=== PATIENT | male | born 1950 | race Caucasian/White ===

== ENCOUNTER 2018-10-09 20:23 | Emergency (ER) | payer BC, MEDICARE, OTHER ==
[~2018-10-09] VITALS: Ht 177.8 cm; Wt 115.9 kg
[2018-10-10 00:36] VITALS: BP 158/82
--- NOTE | 2018-10-10 07:51 | REP ---
Right tibia-fibula four view : There is no fracture or dislocation. Mineralization and joint spaces are normal. There are no calcifications or foreign bodies. Impression: Negative Right tibia-fibula . Electronically Signed by Lukas Jo MD 10/10/2018 07:43 A
== END 2018-10-10 00:42 | disposition home or self-care (01) ==
LOC: M ED 20:23
DX: S80.11XA Contusion of right lower leg, initial encounter (principal); W22.8XXA Striking against or struck by other objects, initial encounter; Y92.018 Other place in single-family (private) house as the place of occurrence of the external cause

== ENCOUNTER 2018-11-27 14:50 | Emergency (ER) | payer MEDICARE ==
[~2018-11-27] VITALS: Ht 177.8 cm; Wt 121.6 kg
[2018-11-27 16:48] VITALS: BP 159/93
== END 2018-11-27 16:57 | disposition home or self-care (01) ==
LOC: M ED 14:50
DX: R04.0 Epistaxis (principal)

== ENCOUNTER 2018-11-28 14:05 | Emergency (ER) | payer MEDICARE ==
[~2018-11-28] VITALS: Ht 177.8 cm; Wt 118.2 kg
[2018-11-28] MEDS ORDERED: NIFEdipine 10 MG CAP PO ONE (16:30)
[2018-11-28 16:36] VITALS: BP 178/90
[2018-11-28 18:50] VITALS: BP 120/68
[2018-11-29] MEDS ORDERED: AUGM875T28 PO (23:32)
== END 2018-11-28 18:51 | disposition home or self-care (01) ==
LOC: M ED 14:05
DX: R04.0 Epistaxis (principal); I10 Essential (primary) hypertension; Z79.899 Other long term (current) drug therapy

== ENCOUNTER 2018-11-29 21:16 | Emergency (ER) | payer MEDICARE ==
[~2018-11-29] VITALS: Ht 177.8 cm; Wt 118.2 kg
[2018-11-29 22:11] LABS: HEMATOCRIT 40.8 % (42.0-52.0); HEMOGLOBIN 13.9 g/dl (13.5-17.5); MEAN CORPUSCULAR HGB CONC 34.1 g/dl (32.0-36.5); MEAN CORPUSCULAR VOLUME 88.1 fl (80.0-96.0); PLATELET COUNT, AUTOMATED 192 10^3/uL (150-450); RED BLOOD COUNT 4.63 10^6/uL (4.30-6.10); WHITE BLOOD COUNT 11.9 10^3/uL (4.0-10.0)
[2018-11-29] MEDS ORDERED: AUGMENTIN 875 MG TAB PO ONE (22:15)
[2018-11-29 22:33] LABS: INR 1.01
[2018-11-29 22:35] LABS: ALBUMIN 3.8 GM/DL (3.2-5.2); ALT/SGPT 43 U/L (12-78); BILIRUBIN,DIRECT 0.3 MG/DL (0.0-0.2); BILIRUBIN,TOTAL 1.6 MG/DL (0.2-1.0); BLOOD UREA NITROGEN 31 MG/DL (7-18); CALCIUM LEVEL 8.7 MG/DL (8.8-10.2); CARBON DIOXIDE LEVEL 27 MEQ/L (21-32); CHLORIDE LEVEL 107 MEQ/L (98-107); CREATININE FOR GFR 1.15 MG/DL (0.70-1.30); GLOMERULAR FILTRATION RATE > 60.0 (>49); GLUCOSE, FASTING 107 MG/DL (70-100); POTASSIUM SERUM 4.2 MEQ/L (3.5-5.1); SODIUM LEVEL 140 MEQ/L (136-145); TOTAL PROTEIN 6.6 GM/DL (6.4-8.2)
[2018-11-29] MEDS ORDERED: MORPHINE 4 MG/ML 1ML VIAL/SYRINGE (J2270) IV ONE (23:00)
[2018-11-29] MEDS ORDERED: SILVER NITRATE APPLICATOR TOP ONE (23:00)
[2018-11-29] MEDS ORDERED: ONDANSETRON 4MG/2ML VIAL (J2405) IV ONE (23:00)
[2018-11-29] MEDS ORDERED: LIDOCAINE W/EPINEPHRINE 1% 20ML VIAL SC ONE (23:30)
[2018-11-29] MEDS ORDERED: AUGM875T28 PO (23:32)
[2018-11-29] MEDS ORDERED: LABETALOL HCL 100 MG/20 ML VIAL IV STA (23:34)
[2018-11-30 00:29] VITALS: BP 127/65
[2018-11-30] MEDS ORDERED: VITMTA PO (04:42)
[2018-11-30] MEDS ORDERED: B COTAB3 PO (04:42)
[2018-11-30] MEDS ORDERED: IBUP-1764 PO (04:42)
[2018-11-30] MEDS ORDERED: VITA100T12 PO (04:42)
== END 2018-11-30 00:48 | disposition home or self-care (01) ==
LOC: M ED 21:16
DX: R04.0 Epistaxis (principal); I10 Essential (primary) hypertension; I25.10 Atherosclerotic heart disease of native coronary artery without angina pectoris
CPT/HCPCS: 80048; 80076; 85027; 85610; 96374; 96375; 99284; J2270; J2405

== ENCOUNTER 2018-11-30 03:39 | Observation (INO) | payer MEDICARE ==
[~2018-11-30] VITALS: Ht 177.8 cm; Wt 118.4 kg
[~2018-11-30 03:39] MED LIST: AUGM875T28 PO
[2018-11-30 04:02] LABS: BASO # 0.1 10^3/uL (0.0-0.2); BASO % 0.6 % (0.0-1.0); EOS # 0.1 10^3/uL (0.0-0.5); EOS % 0.7 % (0.0-3.0); HEMATOCRIT 38.8 % (42.0-52.0); HEMOGLOBIN 12.8 g/dl (13.5-17.5); LYMPH # 1.4 10^3/uL (1.5-5.0); MEAN CORPUSCULAR HEMOGLOBIN 29.9 pg (27.0-33.0); MEAN CORPUSCULAR VOLUME 90.7 fl (80.0-96.0); MONO # 1.3 10^3/uL (0.0-0.8); MONO % 10.3 % (0.0-5.0); NEUTROPHILS # 9.4 10^3/uL (1.5-8.5); PLATELET COUNT, AUTOMATED 185 10^3/uL (150-450); RED BLOOD COUNT 4.28 10^6/uL (4.30-6.10); WHITE BLOOD COUNT 12.2 10^3/uL (4.0-10.0)
[2018-11-30] MEDS ORDERED: B COTAB3 PO (04:42)
[2018-11-30] MEDS ORDERED: VITA100T12 PO (04:42)
[2018-11-30] MEDS ORDERED: IBUP-1764 PO (04:42)
[2018-11-30] MEDS ORDERED: VITMTA PO (04:42)
[2018-11-30] MEDS ORDERED: AUGMENTIN 875 MG TAB PO ONE (10:00)
--- NOTE | 2018-11-30 12:20 | HPEPDOC ---
[facility] Medical History & Physical Date of Admission Nov 30, 2018 Date of Service: Nov 30, 2018 Attending Physician: BLANCA LEONARDO MD History and Physical CHIEF COMPLAINT: Nose bleed HISTORY OF PRESENT ILLNESS: 68-year-old male with no significant past medical history presents with recurrent epistaxis. He reports injury to his lower back 6 weeks ago and has been taking 10-12 tabs of ibuprofen daily since then, last use was for 4 days ago when he started having epistaxis. He presented to the ED, bleeding had stopped and he was sent home; he returned following day with epistaxis, Rhino Rocket was placed and he was sent home, reports slippage of Rhino Rocket with subsequent epistaxis and he returned for the third time to the emergency room. He was evaluated by ENT yesterday and gel was placed with adequate cauterization and he was discharged again from the ED, he reports bleeding restarted before he even made it home. Upon returning last night and other Rhino Rocket was placed in the right nostril, no bleeding has recurred since 4 AM; he was reevaluated by ENT who advised admission for monitoring and managing hypertension. There is no plan for emergent surgery at this time. Patient has no other complaints at this time, denies shortness of breath, chest pain, nausea, vomiting, abdominal pain, diarrhea or constipation. Patient does report dark stool for the past day or 2. 10 point review of system was negative except for above PAST MEDICAL HISTORY: 1. None. PAST SURGICAL HISTORY: 1. Appendectomy. SOCIAL HISTORY: Ex smoker, quit 30+ years ago. Rare alcohol use FAMILY HISTORY: Denies family history of malignancy or heart disease ALLERGIES: Please see below. HOME MEDICATIONS: Multivitamins PHYSICAL EXAMINATION: VITAL SIGNS: Please see below. GENERAL: No distress HEENT: Normocephalic, Rhino Rocket in right nostril, minimal oozing, moist mucous membranes NECK: Supple CARDIOVASCULAR EXAMINATION: S1, S2, no murmurs RESPIRATORY EXAMINATION: Clear to auscultation, no wheezing ABDOMINAL EXAMINATION: Soft, nontender, nondistended, positive bowel sounds EXTREMITIES: Range of motion intact SKIN: No rash NEUROLOGICAL EXAMINATION: Alert and oriented 3, no focal deficits PSYCHIATRIC EXAMINATION: Calm and cooperative LABORATORY DATA: See below. MICROBIOLOGY: Please see below. ASSESSMENT: 78-year-old male with no significant past medical history and recent NSAID use, presents with recurrent epistaxis. . PLAN: 1. Epistaxis. Status post chemical cauterization, Rhino Rocket in right nostril 2. No active bleeding at this time, H&H slightly downtrending, no need for transfusion at this time, will monitor. ENT following Elevated blood pressure, reports no history of hypertension, will control with oral medication. Norvasc ordered. Patient will be admitted for observation. DVT prophylaxis: TEDs. GI prophylaxis: Not needed at this time Vital Signs Vital Signs Date Time Temp Pulse Resp B/P (MAP) Pulse Ox O2 Delivery O2 Flow Rate FiO2 11/30/18 06:57 77 15 164/78 (106) 98 Room Air 11/30/18 03:47 97.8 Laboratory Data Labs 24H Laboratory Tests 2 11/30/18 03:57: Immature Granulocyte % (Auto) 0.4, White Blood Count 12.2H, Red Blood Count 4.28L, Hemoglobin 12.8L, Hematocrit 38.8L, Mean Corpuscular Volume 90.7, Mean Corpuscular Hemoglobin 29.9, Mean Corpuscular Hemoglobin Concent 33.0, Red Cell Distribution Width 12.9, Platelet Count 185, Neutrophils (%) (Auto) 77.0H, Lymphocytes (%) (Auto) 11.0L, Monocytes (%) (Auto) 10.3H, Eosinophils (%) (Auto) 0.7, Basophils (%) (Auto) 0.6, Neutrophils # (Auto) 9.4H, Lymphocytes # (Auto) 1.4L, Monocytes # (Auto) 1.3H, Eosinophils # (Auto) 0.1, Basophils # (Auto) 0.1, Nucleated Red Blood Cells % (auto) 0.0 CBC/BMP Laboratory Tests 11/30/18 03:57 Red Blood Count 4.28 L, Mean Corpuscular Volume 90.7, Mean Corpuscular Hemoglobin 29.9, Mean Corpuscular Hemoglobin Concent 33.0, Red Cell Distribution Width 12.9, Neutrophils (%) (Auto) 77.0 H, Lymphocytes (%) (Auto) 11.0 L, Monocytes (%) (Auto) 10.3 H, Eosinophils (%) (Auto) 0.7, Basophils (%) (Auto) 0.6, Neutrophils # (Auto) 9.4 H, Lymphocytes # (Auto) 1.4 L, Monocytes # (Auto) 1.3 H, Eosinophils # (Auto) 0.1, Basophils # (Auto) 0.1 Home Medications Scheduled Cyanocobalamin (Vitamin B-12) (Vitamin B-12) 100 Mcg Tablet, 100 MCG PO DAILY Multivitamins (Thera M Plus Tablet) 1 Each Tablet, 1 TAB PO DAILY Vitamin B Complex (Vitamin B Complex) 1 Each Tablet, 1 TAB PO DAILY Scheduled PRN Ibuprofen (Ibuprofen) 200 Mg Tablet, 600 MG PO TID PRN for PAIN Allergies Coded Allergies: No Known Allergies (Unverified , 10/09/18) A-FIB/CHADSVASC A-FIB History Current/History of A-Fib/PAF?: No BLANCA LEONARDO MD Nov 30, 2018 12:20
[2018-11-30] MEDS ORDERED: amLODIPine 5 MG TAB PO ONE (13:00)
[2018-11-30 13:05] VITALS: BP 188/91
[2018-11-30 14:00] VITALS: BP 163/96
[2018-11-30 22:00] VITALS: BP 121/70
--- NOTE | 2018-12-01 05:46 | HPE ---
DATE OF ADMISSION: 11/30/2018 REFERRING PHYSICIAN: Emergency department at [facility]. CHIEF COMPLAINT: Right epistaxis. 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 The patient had been seen in the emergency department (ED) last evening by myself and I had placed packing into the right nasal cavity. Upon returning to the emergency department the patient received the placement of rhino rocket. This achieved control of the epistaxis. At this time the patient is not actively bleeding; however, his blood pressure remains in the hypertensive range of systolic pressure of 140-150. Other significant recent medical history included lower back pain requiring the use of 10-12 tablets of ibuprofen on a daily basis until he would start having right epistaxis three days ago. PAST MEDICAL HISTORY: Recurrent right epistaxis. PAST SURGICAL HISTORY: Appendectomy. ALLERGIES: None. MEDICATIONS: - Augmentin as prescribed for prophylaxis against sinusitis. SOCIAL HISTORY: Ex-smoker, occasional drinker. REVIEW OF SYSTEMS: Per history of present illness (HPI) otherwise noncontributory. EXAMINATION: General: The patient appears in no acute distress. HEENT: Right nares free of active bleeding. Posterior pharyngeal wall shows no evidence of fresh blood or blood clots. Oral cavity is moist. Neck: Trachea is midline. No palpable cervical lymphadenopathy. LABORATORY DATA: Hemoglobin 12.9. IMPRESSION: 68-year-old man with recurrent right epistaxis. PLAN: I have discussed with the patient of current management and plan including careful observation while being admitted to the hospital under the care of the hospitalist who will be able to control the blood pressure. If the epistaxis recurs I will bring the patient to the operating room for examination under general anesthesia with possible ligation of sphenopalatine artery. The patient is agreeable with the plan.
[2018-12-01 06:00] VITALS: BP 150/88
[2018-12-01 06:13] LABS: HEMATOCRIT 39.3 % (42.0-52.0); MEAN CORPUSCULAR HEMOGLOBIN 29.4 pg (27.0-33.0); MEAN CORPUSCULAR HGB CONC 33.1 g/dl (32.0-36.5); MEAN CORPUSCULAR VOLUME 88.9 fl (80.0-96.0); PLATELET COUNT, AUTOMATED 177 10^3/uL (150-450); RED BLOOD COUNT 4.42 10^6/uL (4.30-6.10); WHITE BLOOD COUNT 9.9 10^3/uL (4.0-10.0)
[2018-12-01 06:27] LABS: ALBUMIN 3.7 GM/DL (3.2-5.2); ALT/SGPT 37 U/L (12-78); BILIRUBIN,TOTAL 1.5 MG/DL (0.2-1.0); BLOOD UREA NITROGEN 19 MG/DL (7-18); CALCIUM LEVEL 8.8 MG/DL (8.8-10.2); CARBON DIOXIDE LEVEL 29 MEQ/L (21-32); CHLORIDE LEVEL 108 MEQ/L (98-107); CREATININE FOR GFR 1.05 MG/DL (0.70-1.30); GLOMERULAR FILTRATION RATE > 60.0 (>49); GLUCOSE, FASTING 110 MG/DL (70-100); MAGNESIUM LEVEL 2.1 MG/DL (1.8-2.4); POTASSIUM SERUM 3.9 MEQ/L (3.5-5.1); SODIUM LEVEL 142 MEQ/L (136-145); TOTAL PROTEIN 7.1 GM/DL (6.4-8.2)
[2018-12-01] MEDS ORDERED: amLODIPine 5 MG TAB PO SCH (09:00)
[2018-12-01 14:00] VITALS: BP 150/80
--- NOTE | 2018-12-01 15:24 | IPNPDOC ---
Date Seen The patient was seen on 12/01/18. Progress Note HISTORY OF PRESENT ILLNESS: 68-year-old male with no significant past medical history presents with recurrent epistaxis. He reports injury to his lower back 6 weeks ago and has been taking 10-12 tabs of ibuprofen daily since then, last use was for 4 days ago when he started having epistaxis. He presented to the ED, bleeding had stopped and he was sent home; he returned following day with epis taxis, Rhino Rocket was placed and he was sent home, reports slippage of Rhino Rocket with subsequent epistaxis and he returned for the third time to the emergency room. He was evaluated by ENT yesterday and gel was placed with adequate cauterization and he was discharged again from the ED, he reports bleeding restarted before he even made it home. Upon returning last night and other Rhino Rocket was placed in the right nostril, no bleeding has recurred since 4 AM; he was reevaluated by ENT who advised admission for monitoring and managing hypertension. There is no plan for emergent surgery at this time. Patient has no other complaints at this time, denies shortness of breath, chest pain, nausea, vomiting, abdominal pain, diarrhea or constipation. Patient does report dark stool for the past day or 2. 12/01/2018 No further episodes of epistaxis, patient is comfortable, tolerating diet, a mbulating, without any complaints at this time, BP elevated in the morning. She denies any sugars breath, chest pain, abdominal pain, nausea, vomiting or diarrhea at this time. 10 point review of system was negative except for above PHYSICAL EXAMINATION: VITAL SIGNS: Please see below. GENERAL: No distress HEENT: Normocephalic, Rhino Rocket in right nostril, moist mucous membranes NECK: Supple CARDIOVASCULAR EXAMINATION: S1, S2, no murmurs RESPIRATORY EXAMINATION: Clear to auscultation, no wheezing ABDOMINAL EXAMINATION: Soft, nontender, nondistended, positive bowel sounds EXTREMITIES: Range of motion intact SKIN: No rash NEUROLOGICAL EXAMINATION: Alert and oriented 3, no focal deficits PSYCHIATRIC EXAMINATION: Calm and cooperative LABORATORY DATA: See below. MICROBIOLOGY: Please see below. ASSESSMENT: 78-year-old male with no significant past medical history and recent NSAID use, presents with recurrent epistaxis. . PLAN: 1. Epistaxis. Status post chemical cauterization, Rhino Rocket in right nostril 2. No further bleeding, H&H stable. ENT following 2. Hypertension. Continue Norvasc 5 mg daily. DVT prophylaxis: TEDs. GI prophylaxis: Not needed at this time VS, I&O, 24H, Fishbone Vital Signs/I&O Vital Signs Date Time Temp Pulse Resp B/P (MAP) Pulse Ox O2 Delivery O2 Flow Rate FiO2 12/01/18 14:00 96.7 85 19 150/80 (103) 96 11/30/18 06:57 Room Air I&O- Last 24 Hours up to 6 AM 12/01/18 06:00 Intake Total 1300 ml Output Total 0 ml Balance 1300 ml Laboratory Data 24H LABS Laboratory Tests 2 12/01/18 05:48: Nucleated Red Blood Cells % (auto) 0.0, Anion Gap 5L, Glomerular Filtration Rate > 60.0, Blood Urea Nitrogen 19H, Creatinine 1.05, Sodium Level 142, Potassium Level 3.9, Chloride Level 108H, Carbon Dioxide Level 29, Calcium Level 8.8, Aspartate Amino Transf (AST/SGOT) 23, Alanine Aminotransferase (ALT/SGPT) 37, Alkaline Phosphatase 52, Total Bilirubin 1.5H, Total Protein 7.1, Albumin 3.7, Magnesium Level 2.1, Albumin/Globulin Ratio 1.09 CBC/BMP Laboratory Tests 12/01/18 05:48 Red Blood Count 4.42, Mean Corpuscular Volume 88.9, Mean Corpuscular Hemoglobin 29.4, Mean Corpuscular Hemoglobin Concent 33.1, Red Cell Distribution Width 12.6, Calcium Level 8.8, Aspartate Amino Transf (AST/SGOT) 23, Alanine Aminotransferase (ALT/SGPT) 37, Alkaline Phosphatase 52, Total Bilirubin 1.5 H, Total Protein 7.1, Albumin 3.7 BLANCA LEONARDO MD Dec 01, 2018 15:24
[2018-12-01] MEDS ORDERED: amLODIPine 5 MG TAB PO ONE (16:00)
[2018-12-01 22:00] VITALS: BP 144/72
[2018-12-02 06:00] VITALS: BP 124/79
[2018-12-02] MEDS ORDERED: amLODIPine 10 MG TAB PO SCH (09:00)
[2018-12-02 09:04] VITALS: BP 129/78
--- NOTE | 2018-12-02 11:26 | ER ---
DATE OF CONSULTATION: 11/29/2018 REQUESTED BY: Emergency department. CHIEF COMPLAINT: Right epistaxis. HISTORY OF PRESENT ILLNESS: This is a 68-year-old man, presented to the emergency department at [facility] for the past three days due to recurrent right epistaxis. He has had a Rhino Rocket pack in place in the right nasal cavity; however, he still continued to have issue with bleeding, including sensation of blood dripping down the backside of the oral cavity. He has been taking 10-12 tablets of ibuprofen daily since a lower back injury that occurred about six weeks ago. Patient also known to have issue with hypertension. He has no shortness of breath, chest pain, nausea, vomiting, diarrhea, constipation or intractable headache. PAST MEDICAL HISTORY: None. PAST SURGICAL HISTORY: Appendectomy. SOCIAL HISTORY: Ex-smoker, quit 30 years ago. Occasional alcohol user. FAMILY HISTORY: Noncontributory. ALLERGIES: None. HOME MEDICATIONS: - multivitamins - ibuprofen as needed for pain PHYSICAL EXAMINATION: Patient appears in mild distress. Fresh blood noted from the right nares and on the posterior pharyngeal wall at the level of the oropharynx. Normocephalic. Facial motions symmetrical. Normal nasal anatomy. Oral cavity moist. No palpable cervical lymphadenopathy. Trachea midline. No thyromegaly. LABORATORY DATA: Hemoglobin 14. PROCEDURE #1: FLEXIBLE NASAL ENDOSCOPY. INDICATION: Right epistaxis. Patient was in the upright position on the stretcher in the emergency department. Flexible nasal endoscopy was performed in the right nares. Clots were noted throughout the right nasal cavity. Short nasal septal spur in the right inferior midportion of the nasal septum. Anterior deflection of the nasal septum through the left side. PROCEDURE #2: RETRONASAL ENDOSCOPIC DEBRIDEMENT OF THE RIGHT NASAL CAVITY. INDICATION: Right epistaxis. In the upper position on the stretcher in the emergency department, a 30 degree rigid nasal endoscope was introduced into the right nares. Under direct visualization, the clots were successfully suctioned clear from the right nasal cavity. No active bleeder was noted. Diffuse oozing was noted throughout the right nasal cavity. PROCEDURE #3: CONTROL OF RIGHT EPISTAXIS. INDICATION: Right epistaxis. Patient was in the upright position on the stretcher in the emergency department. The right nasal cavity was visualized using 30 degree rigid nasal endoscope. The SINU-FOAM was then injected into the posterior nasal cavity under direct visualization to ensure complete packing. The midportion of the nasal cavity, including osteomeatal complex area was also packed. Spheno fossa area was also packed with the SINU-FOAM. Procedure was well-tolerated without complications. IMPRESSION: A 68-year-old man with recurrent right epistaxis. PLAN: The right nasal cavity was endoscopically debrided and examined using flexible and rigid nasal endoscope. Control of the right epistaxis was achieved using the SINU-FOAM packing. At this time, patient is advised to maintain good control of his blood pressure. He will be contacting his own primary care doctor for management. He will be prescribed Augmentin by the emergency department (ED). He is also advised to not use the ibuprofen anymore at this time due to issue with bleeding, as well as possible risk of injury to the kidneys. I will see the patient again in one week followup in my office.
[2018-12-02] MEDS ORDERED: AUGM875T28 PO (13:43)
[2018-12-02] MEDS ORDERED: AMLO10TA5 PO (13:43)
--- NOTE | 2018-12-07 10:04 | DS.PDOC ---
Discharge Summary General Date of Admission Nov 30, 2018 at 03:40 Date of Discharge 12/02/2018 Attending Physician: BLANCA LEONARDO MD Discharge Summary PROCEDURES PERFORMED DURING STAY: None. ADMITTING DIAGNOSES: 1. Recurrent epistaxis. DISCHARGE DIAGNOSES: 1. Recurrent epistaxis. COMPLICATIONS/CHIEF COMPLAINT: Epistaxis, Recurrent, Htn (Hypertension). HISTORY OF PRESENT ILLNESS: 68-year-old male with past medical history of hypertension, was admitted for recurrent epistaxis, requiring Rhino rocket in the right nostril and ENT evaluation. He presented to the emergency room multiple times for epistaxis, treated with Rhino rocket 2, ligation, continued having epistaxis despite these treatments. He was admitted with a Rhino Rocket and observation along with blood pressure control. He did not have any episodes of epistaxis while hospitalized, blood pressure was controlled with oral medication, no further intervention as per ENT. He is advised to follow-up in the ENT office tomorrow for a rhino rocket removal. Patient is hemodynamically stable for discharge. HOSPITAL COURSE: As above. DISCHARGE MEDICATIONS: Please see below. ALLERGIES: Please see below. PHYSICAL EXAMINATION: VITAL SIGNS: Please see below. GENERAL: No distress HEENT: Rhino Rocket in the right nostril, postnasal drip NECK: Supple CARDIOVASCULAR EXAMINATION: S1, S2, no murmurs RESPIRATORY EXAMINATION: Clear to auscultation, no wheezing ABDOMINAL EXAMINATION: Soft, nontender, nondistended, positive bowel sounds EXTREMITIES: Range of motion intact SKIN: No rash NEUROLOGICAL EXAMINATION: Alert and oriented 3, no focal deficits PSYCHIATRIC EXAMINATION: Calm and cooperative LABORATORY DATA: Please see below. PROGNOSIS: Good ACTIVITY: As tolerated. DIET: Cardiac DISCHARGE PLAN: Patient will follow up in ENTs office tomorrow, PCP in 1-2 weeks DISPOSITION: 01 Home, Self-Care. DISCHARGE INSTRUCTIONS: 1. As above. DISCHARGE CONDITION: Stable. TIME SPENT ON DISCHARGE: Greater than 26 minutes. Vital Signs/I&Os Vital Signs Date Time Temp Pulse Resp B/P (MAP) Pulse Ox O2 Delivery O2 Flow Rate FiO2 12/02/18 09:04 79 129/78 12/02/18 06:00 98.3 18 96 Discharge Medications Scheduled Amlodipine Besylate (Amlodipine Besylate) 10 Mg Tablet, 10 MG PO DAILY Amoxicillin/Potassium Clav (Augmentin 875-125 Tablet) 1 Each Tablet, 1 TAB PO BID Cyanocobalamin (Vitamin B-12) (Vitamin B-12) 100 Mcg Tablet, 100 MCG PO DAILY, (Reported) Multivitamins (Thera M Plus Tablet) 1 Each Tablet, 1 TAB PO DAILY, (Reported) Vitamin B Complex (Vitamin B Complex) 1 Each Tablet, 1 TAB PO DAILY, (Reported) Allergies Coded Allergies: No Known Allergies (Unverified , 10/09/18) BLANCA LEONARDO MD Dec 07, 2018 10:04
== END 2018-12-02 14:27 | disposition home or self-care (01) ==
LOC: M ED 03:39 → M ED INP 03:40 → M MSPAV 13:23
PROVIDERS: ADMIT Internal Medicine; ATTEND Internal Medicine
DX: R04.0 Epistaxis (principal); I10 Essential (primary) hypertension; Z79.899 Other long term (current) drug therapy; Z87.891 Personal history of nicotine dependence
CPT/HCPCS: 36415; 80053; 83735; 85025; 85027; 99284; G0378

== ENCOUNTER 2019-10-08 20:46 | Emergency (ER) | payer MEDICARE ==
[~2019-10-08] VITALS: Ht 177.8 cm; Wt 119.7 kg
[~2019-10-08 20:46] MED LIST changes: +AMLO1TAB25 PO; +B COTAB3 PO; +IBUP-1764 PO; +VITA1TAB35 PO; +VITMTA PO
--- NOTE | 2019-10-08 21:54 | REPVR ---
PROCEDURE INFORMATION: Exam: XR Chest, 1 View Exam date and time: 10/08/2019 9:03 PM Age: 69 years old Clinical indication: Chest pain; Type not specified TECHNIQUE: Imaging protocol: XR of the chest Views: 1 view. COMPARISON: No relevant prior studies available. FINDINGS: Lungs: There is a small focal opacity at the left lateral lung base is nonspecific, which may reflect focal atelectasis or pneumonitis versus soft tissue nodule. Follow-up recommended. Pleural space: No pleural effusion. No pneumothorax is seen. Heart/Mediastinum: Unremarkable. No cardiomegaly. Vasculature: Atherosclerotic vascular disease is noted. IMPRESSION: Small focal opacity at the left lateral lung base is nonspecific, may reflect focal atelectasis or pneumonitis versus soft tissue nodule. Follow-up recommended. Electronically signed by: Arlette Sanchez On 10/08/2019 21:55:02 PM
[2019-10-08 22:03] LABS: BASO # 0.1 10^3/uL (0.0-0.2); BASO % 0.4 % (0.0-1.0); EOS % 0.2 % (0.0-3.0); HEMATOCRIT 53.9 % (42.0-52.0); HEMOGLOBIN 18.3 g/dl (13.5-17.5); LYMPH # 0.6 10^3/uL (1.5-5.0); LYMPH % 4.5 % (24.0-44.0); MEAN CORPUSCULAR HEMOGLOBIN 29.4 pg (27.0-33.0); MEAN CORPUSCULAR VOLUME 86.7 fl (80.0-96.0); MONO # 1.3 10^3/uL (0.0-0.8); MONO % 9.5 % (0.0-5.0); NEUTROPHILS # 11.8 10^3/uL (1.5-8.5); PLATELET COUNT, AUTOMATED 274 10^3/uL (150-450); RED BLOOD COUNT 6.22 10^6/uL (4.30-6.10); WHITE BLOOD COUNT 13.9 10^3/uL (4.0-10.0)
[2019-10-08 22:15] LABS: ALT/SGPT 217 U/L (12-78); BILIRUBIN,DIRECT 5.5 MG/DL (0.0-0.2); BILIRUBIN,TOTAL 7.6 MG/DL (0.2-1.0); BLOOD UREA NITROGEN 24 MG/DL (7-18); CALCIUM LEVEL 10.6 MG/DL (8.8-10.2); CARBON DIOXIDE LEVEL 27 MEQ/L (21-32); CHLORIDE LEVEL 102 MEQ/L (98-107); CPK CREATINE PHOSPHOKINASE 119 U/L (39-308); CREATININE FOR GFR 1.27 MG/DL (0.70-1.30); GLUCOSE, FASTING 109 MG/DL (70-100); LIPASE 11808 U/L (73-393); MB/CK RELATIVE INDEX 1.68 (< OR =4); POTASSIUM SERUM 4.2 MEQ/L (3.5-5.1); SODIUM LEVEL 139 MEQ/L (136-145); TOTAL PROTEIN 8.1 GM/DL (6.4-8.2); TROPONIN I < 0.02 NG/ML (< 0.10)
[2019-10-08] MEDS ORDERED: ISOVUE-370 76% 100ML VIAL As Ordered ONE (22:22)
--- NOTE | 2019-10-08 23:01 | REPVR ---
PROCEDURE INFORMATION: Exam: US Abdomen, Limited; Right Upper Quadrant Exam date and time: 10/08/2019 10:20 PM Age: 69 years old Clinical indication: Abdominal pain; Epigastric; Additional info: Epigastric pain TECHNIQUE: Imaging protocol: US abdomen. Real time ultrasound with image documentation. Limited exam focused on the right upper quadrant. COMPARISON: No relevant prior studies available. FINDINGS: Liver: The liver measures 15.4 cm in length. Hepatic parenchyma appears somewhat echogenic, suggesting hepatic steatosis. Gallbladder: Cholelithiasis is noted. There is mild gallbladder wall thickening, which measures 3.5 mm. Negative Harmon sign. Common bile duct: Common duct measures 6 mm. Pancreas: The pancreas is not visualized due to overlying bowel gas. Right kidney: The right kidney measures 12.3 x 4.6 x 6.1 cm, with no hydronephrosis and no shadowing renal calculi. IMPRESSION: 1. Cholelithiasis, mild gallbladder wall thickening. 2. Prominent common duct measuring 6 mm. 3. Findings suggest hepatic steatosis. Electronically signed by: Arlette Sanchez On 10/08/2019 23:01:47 PM
--- NOTE | 2019-10-08 23:10 | REPVR ---
PROCEDURE INFORMATION: Exam: CT Angiography Chest With Contrast Exam date and time: 10/08/2019 10:56 PM Age: 69 years old Clinical indication: Chest pain; Radiating; Additional info: Chest pain radiating to back; R/O taa TECHNIQUE: Imaging protocol: Computed tomographic angiography of the chest with intravenous contrast. 3D rendering (Not supervised by radiologist): MIP and/or 3D reconstructed images were created by the technologist. Radiation optimization: All CT scans at this facility use at least one of these dose optimization techniques: automated exposure control; mA and/or kV adjustment per patient size (includes targeted exams where dose is matched to clinical indication); or iterative reconstruction. Contrast material: ISOVUE 370; Contrast volume: 75 ml; Contrast route: INTRAVENOUS (IV); COMPARISON: CR PORTABLE CHEST X-RAY 10/08/2019 9:04 PM FINDINGS: Pulmonary arteries: There are no abnormal filling defects within the pulmonary arterial system. The examination is negative for pulmonary thromboembolism. Aorta: Atherosclerotic vascular disease is noted. There is no evidence of an abdominal aortic aneurysm. Lungs: Mild bibasilar atelectasis, greater on the right. Pleural space: Unremarkable. No pneumothorax. No pleural effusion. Heart: Unremarkable. No cardiomegaly. No pericardial effusion. Lymph nodes: Unremarkable. No enlarged lymph nodes. Gallbladder and bile ducts: Cholelithiasis is incidentally noted. Bones/joints: Unremarkable. No acute fracture. IMPRESSION: 1. No aortic aneurysm or dissection. 2. Mild bibasilar atelectasis, greater on the right. Electronically signed by: Arlette Sanchez On 10/08/2019 23:10:33 PM
[2019-10-09] MEDS ORDERED: PIPERACILLIN/TAZOBACTAM SOD 3.375 GM in D5W MINI-BAG PLUS 50 ML IV ONE ×2
[2019-10-09] MEDS ORDERED: MORPHINE 4 MG/ML 1ML VIAL/SYRINGE (J2270) IV ONE (02:15)
[2019-10-09 02:30] VITALS: BP 132/76
--- NOTE | 2019-11-05 10:20 | ECGEPIP ---
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
== END 2019-10-09 02:35 | disposition short-term general hospital (02) ==
LOC: M ED 20:46
DX: K85.10 Biliary acute pancreatitis without necrosis or infection (principal); K80.50 Calculus of bile duct without cholangitis or cholecystitis without obstruction; I45.10 Unspecified right bundle-branch block; J98.11 Atelectasis
CPT/HCPCS: 71045; 71275; 76705; 80047; 80048; 80076; 82550; 82553; 83690; 84443; 84484; 85025; 93005; 93041; 94760; 96365; 96375; 99285; J2270; J2543; Q9967; U0002

== ENCOUNTER 2019-10-27 00:50 | Emergency (ER) | payer MEDICARE ==
[~2019-10-27] VITALS: Ht 180.3 cm; Wt 113.5 kg
[2019-10-27 01:30] LABS: BASO # 0.1 10^3/uL (0.0-0.2); EOS # 0.2 10^3/uL (0.0-0.5); EOS % 1.8 % (0.0-3.0); HEMATOCRIT 42.9 % (42.0-52.0); HEMOGLOBIN 13.7 g/dl (13.5-17.5); LYMPH # 1.2 10^3/uL (1.5-5.0); LYMPH % 12.7 % (24.0-44.0); MEAN CORPUSCULAR HEMOGLOBIN 28.9 pg (27.0-33.0); MEAN CORPUSCULAR HGB CONC 31.9 g/dl (32.0-36.5); MEAN CORPUSCULAR VOLUME 90.5 fl (80.0-96.0); MONO # 1.2 10^3/uL (0.0-0.8); MONO % 12.3 % (0.0-5.0); NEUTROPHILS % 71.8 % (36.0-66.0); PLATELET COUNT, AUTOMATED 508 10^3/uL (150-450); RED BLOOD COUNT 4.74 10^6/uL (4.30-6.10); WHITE BLOOD COUNT 9.8 10^3/uL (4.0-10.0)
[2019-10-27 01:57] LABS: ALBUMIN 3.1 GM/DL (3.2-5.2); ALT/SGPT 36 U/L (12-78); BILIRUBIN,DIRECT 0.7 MG/DL (0.0-0.2); BILIRUBIN,TOTAL 1.3 MG/DL (0.2-1.0); BLOOD UREA NITROGEN 20 MG/DL (7-18); CALCIUM LEVEL 9.2 MG/DL (8.8-10.2); CARBON DIOXIDE LEVEL 27 MEQ/L (21-32); CHLORIDE LEVEL 108 MEQ/L (98-107); CK-MB VALUE MASS < 1.0 NG/ML (<3.6); CPK CREATINE PHOSPHOKINASE 39 U/L (39-308); CREATININE FOR GFR 1.03 MG/DL (0.70-1.30); GLOMERULAR FILTRATION RATE > 60.0 (>49); GLUCOSE, FASTING 121 MG/DL (70-100); LIPASE 517 U/L (73-393); MB/CK RELATIVE INDEX 2.56 (< OR =4); POTASSIUM SERUM 4.1 MEQ/L (3.5-5.1); SODIUM LEVEL 139 MEQ/L (136-145); TOTAL PROTEIN 7.4 GM/DL (6.4-8.2); TROPONIN I < 0.02 NG/ML (< 0.10)
[2019-10-27] MEDS ORDERED: MORPHINE 4 MG/ML 1ML VIAL/SYRINGE (J2270) As Ordered ONE (02:07)
[2019-10-27] MEDS ORDERED: ONDANSETRON 4 MG ORAL DISINTEGRATING TAB As Ordered ONE (02:12)
[2019-10-27 02:14] LABS: INR 1.08; PROTHROMBIN TIME 14.3 SECONDS (11.8-14.0)
[2019-10-27 02:15] LABS: PARTIAL THROMBOPLASTIN TIME 39.6 SECONDS (25.0-38.4)
[2019-10-27] MEDS: MORPHINE 4 MG/ML 1ML VIAL/SYRINGE (J2270) IV PRN ×2 (02:15→03:49)
[2019-10-27] MEDS ORDERED: ONDANSETRON 4MG/2ML VIAL IV ONE (02:15)
[2019-10-27] MEDS ORDERED: ISOVUE-370 76% 100ML VIAL As Ordered ONE (02:32)
[2019-10-27] MEDS: GASTROGRAFIN SOLUTION 30ML PO SCH ×2 (02:38→03:17)
--- NOTE | 2019-10-27 04:15 | REPVR ---
PROCEDURE INFORMATION: Exam: CT Abdomen And Pelvis With Contrast Exam date and time: 10/27/2019 2:04 AM Age: 69 years old Clinical indication: Abdominal pain; Localized; Right upper quadrant (ruq); Prior surgery; Surgery date: <1 month; Surgery type: Lap bia; Additional info: Recent complicated lap choley, sudden onset ruq abd pain TECHNIQUE: Imaging protocol: Computed tomography of the abdomen and pelvis with intravenous contrast. Radiation optimization: All CT scans at this facility use at least one of these dose optimization techniques: automated exposure control; mA and/or kV adjustment per patient size (includes targeted exams where dose is matched to clinical indication); or iterative reconstruction. Contrast material: ISO; Contrast volume: 100 ml; Contrast route: INTRAVENOUS (IV); COMPARISON: GALLBLADDER US 10/08/2019 10:20 PM FINDINGS: Lungs: Mild bilateral lower lobe and minimal right middle lobe fibro-atelectatic change and question of minimal infiltrates. There is minimal pneumobilia in the left pelvic lobe. Liver: Normal. No mass. Gallbladder and bile ducts: Status post cholecystectomy. There is a loculated collection of fluid which extends from the lateral aspect of the gallbladder fossa along the right pericolic gutter measuring up to 21.5 x 5.7 x 9.4 cm with internal nodularity or debris toward the caudal aspect. Findings may reflect abscess or possibly bile leak. Hematoma is less likely. Pancreas: There is a stent which extends from the duodenal bulb along the course of a bile or pancreatic duct noted on the previous scan. Spleen: Normal. No splenomegaly. Adrenals: There is a left adrenal nodule measuring 12 x 15 x 17 mm with a Hounsfield measurement of 24. Kidneys and ureters: Nonobstructing bilateral renal calculi. Stomach and bowel: There is colonic diverticulosis without evidence of diverticulitis. Status post ascending colectomy with ileocolic anastomosis in the right quadrant. Appendix: No evidence of appendicitis. Intraperitoneal space: See "Gallbladder and bile ducts" finding. Vasculature: There is moderate atherosclerotic calcification of the abdominal aorta with extension into the iliac arteries. Lymph nodes: Unremarkable. No enlarged lymph nodes. Bladder: Unremarkable as visualized. Reproductive: Unremarkable as visualized. Bones/joints: Unremarkable. No acute fracture. Soft tissues: Small umbilical hernia containing a short segment of small bowel with no obstruction. IMPRESSION: 1. Status post cholecystectomy with minimal pneumobilia. 2. Complex loculated fluid collection in the right pericolic gutter extending to the lateral aspect of the gallbladder fossa which may reflect abscess or possibly bile leak. Old hematoma is thought to be less likely but not excluded. 3. There appears to be a stent extending from the duodenal bulb into the cephalad aspect of the pancreatic head which follows the course of a duct which was previously seen and may reflect a pancreatic divisum or unusual course of the distal bile duct. 4. Mild bilateral lower lobe and minimal right middle lobe fibro-atelectatic change and question of minimal infiltrates. 5. Small umbilical hernia containing a short segment of small bowel with no obstruction. 6. Nonobstructing bilateral renal calculi. 7. Colonic diverticulosis without diverticulitis. 8. Evidence of ascending colectomy with ileocolic anastomosis in the right upper quadrant. Electronically signed by: Juan Wells On 10/27/2019 04:14:55 AM
[2019-10-27] MEDS ORDERED: OXYCODONE/APAP 5MG/325MG(BULK FOR ED) 1 TABLET PO ONE (05:15)
[2019-10-27 05:18] VITALS: BP 156/82
--- NOTE | 2019-10-28 10:59 | ED PDOC ---
Post-Departure Follow-Up dr mccarty faxed fomral report of ct abd/p for fu Scout Jackson MD Oct 28, 2019 10:59
--- NOTE | 2019-10-30 15:28 | ECGEPIP ---
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
== END 2019-10-27 05:22 | disposition home or self-care (01) ==
LOC: M ED 00:50
DX: M79.81 Nontraumatic hematoma of soft tissue (principal); J98.11 Atelectasis; N20.0 Calculus of kidney; I45.19 Other right bundle-branch block
CPT/HCPCS: 74177; 80048; 80076; 82550; 82553; 83690; 84484; 85025; 85610; 85730; 86850; 86900; 86901; 93005; 93041; 96374; 96375; 96376; 99284; J2270; J2405; Q9963; Q9967

== ENCOUNTER 2023-07-09 22:25 | Observation (INO) | payer MEDICARE ==
[~2023-07-09] VITALS: Ht 177.8 cm; Wt 124.8 kg
[2023-07-09 11:54] VITALS: BP 146/92; TEMP 96.9; O2SAT 95
[2023-07-09] MEDS ORDERED: ZYTI250T PO (22:40)
[2023-07-09] MEDS ORDERED: PRED5TA (22:40)
[2023-07-09] MEDS: ONDANSETRON 4MG 2ML VIAL IV ONE (23:58)
[2023-07-09] MEDS: MORPHINE 4 MG/ML 1ML VIAL IV PRN (23:59)
[2023-07-10] LABS: VENOUS BASE EXCESS 0.2 (-2.0-2.0); VENOUS HCO3 25.7 MMOL/L (23.0-27.0); VENOUS O2 SATURATION 57.8 % (60.0-80.0); VENOUS PARTIAL PRESSURE CO2 44.6 mmHg (38.0-50.0); VENOUS PARTIAL PRESSURE O2 29.3 mmHg (30.0-50.0); VENOUS PH 7.378 UNITS (7.330-7.430); VENOUS STANDARD HCO3 23.6 MMOL/L
[2023-07-10 00:36] LABS: CK-MB VALUE MASS < 1.0 NG/ML (<3.6)
[2023-07-10 00:39] LABS: BASO # 0.1 10^3/uL (0.0-0.2); BASO % 0.6 % (0.0-1.0); EOS % 0.5 % (0.0-3.0); HEMATOCRIT 42.6 % (42.0-52.0); HEMOGLOBIN 13.9 g/dl (13.5-17.5); LYMPH % 11.6 % (24.0-44.0); MEAN CORPUSCULAR HEMOGLOBIN 30.1 pg (27.0-33.0); MEAN CORPUSCULAR HGB CONC 32.6 g/dl (32.0-36.5); MEAN CORPUSCULAR VOLUME 92.2 fl (80.0-96.0); MONO # 1.1 10^3/uL (0.0-0.8); MONO % 12.8 % (2.0-8.0); NEUTROPHILS # 6.1 10^3/uL (1.5-8.5); NEUTROPHILS % 74.1 % (36.0-66.0); RED BLOOD COUNT 4.62 10^6/uL (4.30-6.10); WHITE BLOOD COUNT 8.2 10^3/uL (4.0-10.0)
[2023-07-10 00:45] LABS: ALBUMIN 3.4 G/DL (3.2-5.2); ALKALINE PHOSPHATASE 68 U/L (46-116); ALT/SGPT 53 U/L (7.0-40); AST/SGOT 48 U/L (<34); BILIRUBIN,DIRECT 0.6 MG/DL (<0.4); BILIRUBIN,TOTAL 1.9 MG/DL (0.3-1.2); BLOOD UREA NITROGEN 19 MG/DL (9-23); CALCIUM LEVEL 9.5 MG/DL (8.3-10.6); CARBON DIOXIDE LEVEL 28 MMOL/L (20-31); CHLORIDE LEVEL 104 MMOL/L (98-107); CPK CREATINE PHOSPHOKINASE 72 U/L (46-171); CREATININE FOR GFR 0.96 MG/DL (0.70-1.30); GLOMERULAR FILTRATION RATE > 60.0 (>42); GLUCOSE, FASTING 108 MG/DL (74-106); MB/CK RELATIVE INDEX 1.38 (< OR =4); POTASSIUM SERUM 4.6 MMOL/L (3.5-5.1); SODIUM LEVEL 136 MMOL/L (136-145); THYROID STIMULATING HORMONE 1.238 uIU/ML (0.55-4.78); THYROXINE (T4) 10.4 UG/DL (4.5-10.9); TOTAL PROTEIN 6.3 G/DL (5.7-8.2)
[2023-07-10] MEDS ORDERED: ISOVUE-370 76% 100ML VIAL As Ordered ONE (00:56)
[2023-07-10 01:16] LABS: PLATELET COUNT, AUTOMATED 147 10^3/uL (150-450)
[2023-07-10] MEDS: MORPHINE 4 MG/ML 1ML VIAL IV PRN (01:53)
[2023-07-10] MEDS: fentaNYL 100 MCG/2 ML INJECTION IV ONE (03:09)
[2023-07-10] MEDS ORDERED: FENT12DI12 TOP (03:52)
[2023-07-10] MEDS ORDERED: LEVO750T14 PO (03:52)
[2023-07-10] MEDS: LevoFLOXacin 750 MG TABLET PO ONE (04:09)
[2023-07-10] MEDS ORDERED: MULT-40 PO (05:35)
[2023-07-10] MEDS ORDERED: PRED5TA PO (05:35)
[2023-07-10] MEDS ORDERED: DULO30CA9 PO (05:35)
[2023-07-10] MEDS ORDERED: VITA100093 PO (05:35)
[2023-07-10] MEDS ORDERED: OYST1TAB PO (05:35)
[2023-07-10] MEDS ORDERED: ONDA-284 PO (05:35)
[2023-07-10] MEDS ORDERED: HOME MED LIST COMPLETE! XX SCH (05:35)
[2023-07-10] MEDS ORDERED: FENT1PAT25 TD (05:35)
[2023-07-10] MEDS ORDERED: PERCOCET 5MG/325MG TAB PO PRN ×2 (06:30)
[2023-07-10] MEDS: cefTRIAXone SOD 1 GM in D5W MINI-BAG PLUS 50 ML IV SCH (07:07)
[2023-07-10] MEDS: ACETAMINOPHEN TAB 650MG DOSE (2X325MG) PO PRN (07:07)
[2023-07-10] MEDS: DULoxetine 30MG CAPSULE (CYMBALTA) PO SCH (07:52)
[2023-07-10] MEDS: predniSONE 5 MG TAB PO SCH (07:52)
[2023-07-10] MEDS: ENOXAPARIN 40MG/0.4ML SYRINGE (J1650 PER 10MG) SC SCH (07:52)
[2023-07-10] MEDS: DOXYCYCLINE HYCLATE 100MG TABLET PO SCH (07:53)
[2023-07-10 08:22] LABS: BASO # 0.1 10^3/uL (0.0-0.2); BASO % 0.7 % (0.0-1.0); EOS # 0.1 10^3/uL (0.0-0.5); EOS % 0.6 % (0.0-3.0); HEMATOCRIT 41.1 % (42.0-52.0); HEMOGLOBIN 13.7 g/dl (13.5-17.5); LYMPH % 11.6 % (24.0-44.0); MEAN CORPUSCULAR HEMOGLOBIN 30.4 pg (27.0-33.0); MEAN CORPUSCULAR HGB CONC 33.3 g/dl (32.0-36.5); MEAN CORPUSCULAR VOLUME 91.3 fl (80.0-96.0); NEUTROPHILS # 6.4 10^3/uL (1.5-8.5); NEUTROPHILS % 74.8 % (36.0-66.0); PLATELET COUNT, AUTOMATED 145 10^3/uL (150-450); WHITE BLOOD COUNT 8.6 10^3/uL (4.0-10.0)
[2023-07-10 08:50] LABS: ALBUMIN 3.2 G/DL (3.2-5.2); ALKALINE PHOSPHATASE 66 U/L (46-116); ALT/SGPT 46 U/L (7.0-40); AST/SGOT 36 U/L (<34); BILIRUBIN,TOTAL 2.3 MG/DL (0.3-1.2); BLOOD UREA NITROGEN 15 MG/DL (9-23); CALCIUM LEVEL 9.2 MG/DL (8.3-10.6); CARBON DIOXIDE LEVEL 24 MMOL/L (20-31); CHLORIDE LEVEL 101 MMOL/L (98-107); CREATININE FOR GFR 0.85 MG/DL (0.70-1.30); GLOMERULAR FILTRATION RATE > 60.0 (>42); GLUCOSE, FASTING 99 MG/DL (74-106); POTASSIUM SERUM 3.7 MMOL/L (3.5-5.1); SODIUM LEVEL 133 MMOL/L (136-145); TOTAL PROTEIN 6.1 G/DL (5.7-8.2)
[2023-07-10 09:02] LABS: PROCALCITONIN 0.23 ng/ml
[2023-07-10] MEDS: CYCLOBENZAPRINE 5MG TABLET PO SCH (10:49)
[2023-07-10] MEDS: VITAMIN D 1,000 INTERNATIONAL UNITS TABLET PO SCH (10:49)
[2023-07-10] MEDS: fentaNYL 50 MCG/HR PATCH TD SCH (11:09)
[2023-07-10] MEDS: guaiFENesin ER TABLET 600 MG TAB PO SCH (11:31)
[2023-07-10 11:45] VITALS: BP 146/92; TEMP 96.9; O2SAT 95
[2023-07-10 12:00] VITALS: O2SAT 91
[2023-07-10] MEDS: FENTANYL REMOVAL DOCUMENTATION MISC XX SCH (12:09)
[2023-07-10 17:10] VITALS: BP 146/88; TEMP 97.7; O2SAT 91
[2023-07-10 22:00] VITALS: BP 136/78; TEMP 97.9; O2SAT 92
[2023-07-11 06:07] LABS: BASO % 0.5 % (0.0-1.0); EOS # 0.1 10^3/uL (0.0-0.5); EOS % 1.2 % (0.0-3.0); HEMATOCRIT 42.7 % (42.0-52.0); HEMOGLOBIN 14.1 g/dl (13.5-17.5); LYMPH % 12.9 % (24.0-44.0); MEAN CORPUSCULAR HEMOGLOBIN 30.4 pg (27.0-33.0); MONO # 0.9 10^3/uL (0.0-0.8); NEUTROPHILS # 5.4 10^3/uL (1.5-8.5); NEUTROPHILS % 73.1 % (36.0-66.0); PLATELET COUNT, AUTOMATED 156 10^3/uL (150-450); RED BLOOD COUNT 4.64 10^6/uL (4.30-6.10); WHITE BLOOD COUNT 7.4 10^3/uL (4.0-10.0)
[2023-07-11 06:29] VITALS: BP 163/95; TEMP 97.7; O2SAT 94
[2023-07-11 06:37] LABS: BLOOD UREA NITROGEN 18 MG/DL (9-23); CALCIUM LEVEL 9.3 MG/DL (8.3-10.6); CARBON DIOXIDE LEVEL 28 MMOL/L (20-31); CHLORIDE LEVEL 106 MMOL/L (98-107); CREATININE FOR GFR 0.85 MG/DL (0.70-1.30); GLOMERULAR FILTRATION RATE > 60.0 (>42); GLUCOSE, FASTING 99 MG/DL (74-106); POTASSIUM SERUM 4.6 MMOL/L (3.5-5.1); SODIUM LEVEL 140 MMOL/L (136-145)
[2023-07-11] MEDS: amLODIPine 5 MG TAB PO SCH (09:00)
[2023-07-11 09:41] VITALS: BP 132/67
[2023-07-11 13:55] VITALS: BP 148/79; TEMP 97.9; O2SAT 91
[2023-07-11 20:28] VITALS: BP 147/79; TEMP 97.7; O2SAT 93
[2023-07-12 06:33] VITALS: BP 158/91; TEMP 97.3; O2SAT 92
[2023-07-12 07:00] VITALS: O2SAT 93
[2023-07-12 08:00] VITALS: O2SAT 93
[2023-07-12 09:00] VITALS: O2SAT 90
[2023-07-12] MEDS ORDERED: LEVO1TAB40 PO (09:55)
[2023-07-12] MEDS ORDERED: OXYC1TAB23 PO (09:55)
[2023-07-12] MEDS ORDERED: CYCL5TAB PO (09:55)
[2023-07-12] MEDS ORDERED: MUCI600T31 PO (09:55)
[2023-07-12 10:00] VITALS: O2SAT 91
[2023-07-12 15:08] LABS: BODY FLUID CULTURE Not indicated. (.); ORGANISM ID Not indicated. (.); SPECIMEN SOURCE Urine (.)
[2023-07-12 16:13] LABS: URINE STREP PNEUMONIAE ANTIGEN Positive (Negative)
== END 2023-07-12 11:55 | disposition home or self-care (01) ==
LOC: M ED 22:25 → M ED INP 22:26 → M MSPAV 07-10 11:45
PROVIDERS: ADMIT Internal Medicine; ATTEND Internal Medicine
DX: J15.4 Pneumonia due to other streptococci (principal); B97.4 Respiratory syncytial virus as the cause of diseases classified elsewhere; A40.3 Sepsis due to Streptococcus pneumoniae; M54.9 Dorsalgia, unspecified; G89.29 Other chronic pain; C79.51 Secondary malignant neoplasm of bone; C79.89 Secondary malignant neoplasm of other specified sites; M25.511 Pain in right shoulder; C61 Malignant neoplasm of prostate; R06.02 Shortness of breath; R00.0 Tachycardia, unspecified; I10 Essential (primary) hypertension; R74.01 Elevation of levels of liver transaminase levels; E55.9 Vitamin D deficiency, unspecified; Z90.49 Acquired absence of other specified parts of digestive tract; Z90.89 Acquired absence of other organs; Z85.51 Personal history of malignant neoplasm of bladder; Z87.891 Personal history of nicotine dependence; Z88.5 Allergy status to narcotic agent; Z79.899 Other long term (current) drug therapy; Z79.52 Long term (current) use of systemic steroids
CPT/HCPCS: 36415; 71045; 71275; 72131; 73030; 74178; 76705; 80048; 80053; 80076; 82550; 82553; 82803; 83605; 83880; 84145; 84436; 84443; 84484; 85025; 87040; 87070; 87077; 87186; 87205; 87449; 87486; 87581; 87633; 87641; 87798; 87899; 93005; 93041; 94760; 96365; 96372; 96375; 96376; 97161; 99285; G0378; J0696; J1650; J2405; J3010; J7512; Q9967